=== PATIENT | male | born 1965 | race Two or more races ===

== ENCOUNTER 2018-10-02 08:23 | Inpatient (IN) | payer OTHER ==
[2018-10-02] VITALS (12 sets, daily range): BP systolic 129–190; BP diastolic 74–100
[~2018-10-02] VITALS: Ht 188 cm; Wt 99.8 kg
[~2018-10-02 08:23] MED LIST: NKM; ceFAZolin sod 2 GM in D5W 110 ML IVPB ONE
--- NOTE | 2018-10-02 09:57 | Pre-Procedure Note/Attestation ---
Pre-Procedure Note/Attestation Complete Prior to Procedure Planned Procedure: not applicable Procedure Narrative: Artificial disc replacement of cervical 56, anterior cervical discectomy and fusion of C67 Indications for Procedure Pre-Operative Diagnosis: Herniation C56,67 Attestation I attest that I discussed the nature of the procedure; its benefits; risks and complications; and alternatives (and the risks and benefits of such alternatives ), prior to the procedure, with the patient (or the patient's legal ict sales representative). I attest that, if there was a reasonable possibility of needing a blood transfusion, the patient (or the patient's legal ict sales representative) was given the [facility] standardized written summary, pursuant to the Rogelio Goehner Blood Safety Act ([place] Health and Safety Code # 1645, as amended). I attest that I re-evaluated the patient just prior to the surgery and that there has been no change in the patient's H&P, except as documented below: Tee Jones MD Oct 02, 2018 09:57
--- NOTE | 2018-10-02 09:58 | Brief Operative Note ---
Immediate Post Operative Note Operative Note Chief Complaint: neck pain and radiculopathy Pre-op Diagnosis: Herniation C56,67 Procedure: Artificial disc replacement of cervical 56, anterior cervical discectomy and fusion of C67 Post-op Diagnosis: same as pre-op Findings: consistent w/pre-op dx studies Surgeon: Karen Metal Roofer: Nely Anesthesiologist: Anesthesia: general Specimen: none Complications: none Condition: stable Fluids: IVF Estimated Blood Loss: minimal Drains: none Implant(s) used?: Yes - nuvasive interlock c sz 6, screws 3x13, synthes prodisc c sz 5 Tee Jones MD Oct 02, 2018 09:58
[2018-10-02] MEDS ORDERED: HYDROcodone/Acetamin 7.5/325 tab ORAL PRN ×3 (10:00→11:00)
[2018-10-02] MEDS ORDERED: Chloraseptic Spray 20mL Bottle ORAL PRN (10:00)
[2018-10-02] MEDS ORDERED: Metoclopramide 10mg/2ml Inj IVP PRN (10:00)
[2018-10-02] MEDS ORDERED: HYDROcodone/Acetamin 5/325 tab ORAL PRN ×2 (10:00→11:00)
[2018-10-02] MEDS ORDERED: Milk of Magnesia 30ml Ud ORAL PRN (10:00)
[2018-10-02] MEDS ORDERED: Morphine Sulfate 4mg/ml Inj (IV USE ONLY) IV PRN (10:00)
[2018-10-02] MEDS ORDERED: HYDROmorphone 1mg/ml Carpuject IVP PRN (10:00)
[2018-10-02] MEDS ORDERED: Naloxone 0.4mg/ml Inj IVP PRN (10:00)
[2018-10-02] MEDS ORDERED: Morphine Sulfate 2mg/ml Inj(IV/IM USE ONLY) IV PRN (10:00)
[2018-10-02] MEDS ORDERED: LR 1000ml 1,000 ML IVLG SCH (10:47)
--- NOTE | 2018-10-02 10:53 | Anethesia Preoperative Eval ---
Anesthesia Pre-op PMH/ROS General Date of Evaluation: Oct 02, 2018 Time of Evaluation: 13:14 Anesthesiologist: Guy ASA Score: ASA 2 Mallampati Score Class I : Soft palate, uvula, fauces, pillars visible Class II: Soft palate, uvula, fauces visible Class III: Soft palate, base of uvula visible Class IV: Only hard plate visible Mallampati Classification: Class II Surgeon: Karen Diagnosis: Neck Pain Surgical Procedure: ACDF C6-7, ADR C5-6 Anesthesia History: none Family History: no anesthesia problems Allergies: Coded Allergies: No Known Allergies (Unverified , 10/02/18) Medications: see eMAR Patient NPO?: Yes Past Medical History Cardiovascular: Reports: HTN PSxH Narrative: Appendectomy Anesthesia Pre-op Phys. Exam Physician Exam Last Vital Signs Date Time Temp Pulse Resp B/P (MAP) Pulse Ox O2 Delivery O2 Flow Rate FiO2 10/02/18 10:45 Room Air 10/02/18 10:43 97.9 79 18 143/86 (105) 97 Constitutional: NAD Neurologic: CN 2-12 intact Cardiovascular: RRR Respiratory: CTA Gastrointestinal: S/NT/ND Airway Exam Mallampati Score: Class II MO: full ROM: limited Teeth: intact Anesthesia Pre-op A/P Risk Assessment & Plan Assessment: ASA 2 Plan: GA, SED, GlideScope Go Status Change Before Surgery: No Pre-Antibiotics Dru Grams Ancef IV Given Within 1 Hr of Incision: Yes Time Given: 13:31 Isai Tovar MD Oct 02, 2018 10:52
--- NOTE | 2018-10-02 10:54 | Immediate Post-Op Evaluation ---
Immediate Post-Op Evalulation Immediate Post-Op Evalulation Procedure: ACDF C6-7, ADR C5-6 Date of Evaluation: Oct 02, 2018 Time of Evaluation: 16:15 IV Fluids: 800 LR Blood Products: 0 Estimated Blood Loss: 100 Urinary Output: 100 Blood Pressure Systolic: 190 Blood Pressure Diastolic: 95 Pulse Rate: 84 Respiratory Rate: 16 O2 Sat by Pulse Oximetry: 100 Temperature (Fahrenheit): 97.5 Pain Score (1-10): 2 Nausea: No Vomiting: No Complications 0 Patient Status: awake, reacts, patent, extubated, none Hydration Status: adequate Dru Grams Ancef IV Given Within 1 Hr of Incision: Yes Time Given: 13:31 Isai Tovar MD Oct 02, 2018 10:54
[2018-10-02] MEDS ORDERED: Labetalol 5mg/ml 20ml vial IV PRN (11:00)
[2018-10-02] MEDS ORDERED: oxyCODONE HCL/Acetaminophen 5/325mg ORAL PRN (11:00)
[2018-10-02] MEDS ORDERED: DiphenhydrAMINE 50mg/ml Inj IVP PRN (11:00)
[2018-10-02] MEDS ORDERED: Meperidine 50mg/ml Inj(FOR RIGORS ONLY) IVP PRN (11:00)
[2018-10-02] MEDS ORDERED: Acetaminophen (Non formulary) 100 ML IV ONE (11:00)
[2018-10-02] MEDS ORDERED: Atropine Sulfate 0.4mg/ml inj IVP PRN (11:00)
[2018-10-02] MEDS ORDERED: LORazepam Inj 2mg/ml 1ml IV PRN (11:00)
[2018-10-02] MEDS ORDERED: Lidocaine 1% Plain 30 ml INJ ONE (11:00)
[2018-10-02] MEDS ORDERED: Hydromorphone 0.5mg/0.5ml inj IVP PRN (11:00)
[2018-10-02] MEDS ORDERED: Midazolam 2mg/2ml Inj IVP PRN (11:00)
[2018-10-02] MEDS ORDERED: fentaNYL 100 mcg/2 mL IV PRN (11:00)
[2018-10-02] MEDS ORDERED: Ketorolac 30mg Inj IV PRN ×2 (11:00)
[2018-10-02] MEDS ORDERED: Lidocaine 1% MPF 10mg/ml 5ml ONE (11:06)
[2018-10-02] MEDS ORDERED: Sodium Chloride 10ml vial INJ ONE (11:06)
[2018-10-02] MEDS ORDERED: Ketorolac 30mg Inj ONE (11:06)
[2018-10-02] MEDS ORDERED: fentaNYL 100 mcg/2 mL IV ONE ×3 (11:07→13:00)
[2018-10-02] MEDS ORDERED: Zemuron 50mg/5ml Inj IV ONE (11:23)
[2018-10-02] MEDS ORDERED: Vancomycin 1gm vial IVPB ONE (12:29)
[2018-10-02] MEDS ORDERED: Thrombin 5000 units TOPIC ONE (12:29)
[2018-10-02] MEDS ORDERED: Gelfoam Size TOPIC ONE (12:29)
[2018-10-02] MEDS ORDERED: Bacitracin 50000 Units Vial ONE (12:29)
[2018-10-02] MEDS ORDERED: Sterile Water Irrig 1000ml IRRIG ONE ×2 (13:00)
[2018-10-02] MEDS ORDERED: Neostigmine 1mg/ml 10ml Inj ONE ×2 (13:00)
[2018-10-02] MEDS ORDERED: Dexamethasone 4mg/ml vial ONE ×2 (13:00)
[2018-10-02] MEDS ORDERED: Glycopyrrolate 0.2mg/ml 1ml Vial ONE ×2 (13:00)
[2018-10-02] MEDS ORDERED: LR 1000ml ONE ×2 (13:00)
[2018-10-02] MEDS ORDERED: Propofol 1,000mg/ 100ml btl IV ONE (13:00)
[2018-10-02] MEDS ORDERED: NS Irrig 1000ml IRRIG ONE (13:19)
--- NOTE | 2018-10-02 17:23 | Diagnostic Imaging Report ---
INDICATION: Pain, intraoperative TECHNIQUE: Intraoperative imaging Fluoroscopy time: 37.8 seconds Total dose: 0.53948 mGym2 Total number of images: 4 COMPARISON: None FINDINGS: Intraoperative images demonstrate surgical tool projected at the anterior aspect of the C6-7 disc. Subsequent images demonstrate placement of a disc prosthesis at C5-6, and anterior fusion hardware at C6-7. IMPRESSION: Intraoperative imaging, as described
--- NOTE | 2018-10-02 17:32 | General Progress Note ---
Assessment/Plan Assessment/Plan neck pain and radiculopathy Herniation C56,67 Artificial disc replacement of cervical 56, anterior cervical discectomy and fusion of C67 PLAN 1. incentive spirometry 2. SCD 3. PT evaluation and therapy 4. Hydration 5. Pain management 6. discharge once stable with outpatient follow up Subjective Allergies: Coded Allergies: No Known Allergies (Unverified , 10/02/18) Subjective asked to follow up postop Objective Last 24 Hour Vital Signs Date Time Temp Pulse Resp B/P (MAP) Pulse Ox O2 Delivery O2 Flow Rate FiO2 10/02/18 17:05 97.9 85 17 154/84 100 Nasal Cannula 3 10/02/18 16:55 81 20 162/84 100 Nasal Cannula 3 10/02/18 16:38 85 16 169/95 100 Simple Mask 6 10/02/18 16:28 180/100 10/02/18 16:28 80 14 180/100 100 Simple Mask 6 10/02/18 16:14 81 15 182/89 100 Simple Mask 6 10/02/18 16:09 80 13 182/98 100 Simple Mask 6 10/02/18 16:04 97.5 85 16 190/95 100 Simple Mask 6 10/02/18 16:04 84 16 100 10/02/18 10:45 Room Air 10/02/18 10:43 97.9 79 18 143/86 (105) 97 Height (Feet): 6 Height (Inches): 2.00 Weight (Pounds): 220 Objective WDWN NAD clear breath sounds bilaterally without rhonchi or wheeze [id number] without MRG NABS nontender no HSM no CCE nonfocal Mike Fernandez MD Oct 02, 2018 17:32
--- NOTE | 2018-10-02 18:03 | NUR ---
NURSE NOTES: Received patient from ANDREA Collado awake alert with out no distress, surgical site with Dermabond and Ice pack no bleeding neuro check stable, pt. reported discomfort with FC only and pain 5/10 at surgical site. RN assessed the FC draining well and no abnormal finding. Call light with in reach bed on low position and locked, room orientation given. overhead table and phone with in reach. patient had baclofen 5mg in the belonging bag sent to pharmacy.
[2018-10-02] MEDS: Morphine Sulfate 4mg/ml Inj (IV USE ONLY) IV PRN ×2 (18:53→23:37)
--- NOTE | 2018-10-02 19:00 | NUR ---
NURSE NOTES: FC removed as ordered patient tolerated the procedure, after FC removal patient stated he still feel the discomfort and the urge to urinate urinal given no urine yet. FC output 200ml yellow clear. reported pain 6/10 morphine 4mg given will continue to monitor.
--- NOTE | 2018-10-02 19:30 | NUR ---
NURSE NOTES: Seen pt on initial rounding. Pt AAXO3, resp even, incision anterior neck intact, uses ice pack to site and posterior neck. c/o pain, will f/u w/ pain med schedule. No distress noted, call light w/in reach.
--- NOTE | 2018-10-02 19:43 | NUR ---
HAND-OFF: Report given to ANDREA Guzman patient stable condition.
[2018-10-02] MEDS: NS w/KCl 20mEq 1,000 ML IV SCH (20:29)
[2018-10-02] MEDS: ceFAZolin sod 1 GM in D5W 55 ML IV SCH (20:32)
[2018-10-02] MEDS: Dexamethasone 4mg/ml vial IVP SCH (23:36)
[2018-10-03] VITALS: BP 144/81
--- NOTE | 2018-10-03 | Operative Note - Dictated ---
DATE OF OPERATION: 10/02/2018 SURGEON: Tee Jones MD, Orthopaedic Spine Surgeon. AUTO HAULER: FLORENCIO Wilder. PREOPERATIVE DIAGNOSES: 1. Intractable neck pain. 2. Radiculopathy. 3. Herniation, C5-C6, C6-C7. 4. Neural foraminal stenosis, C5-C6, C6-C7. 5. Stenosis. POSTOPERATIVE DIAGNOSES: 1. Intractable neck pain. 2. Radiculopathy. 3. Herniation, C5-C6, C6-C7. 4. Neural foraminal stenosis, C5-C6, C6-C7. 5. Stenosis. PROCEDURE PERFORMED: 1. Anterior cervical discectomy and artificial disc replacement of C5-C6 using a Synthes ProDisc C size 5 height. 2. Anterior cervical discectomy and fusion of C6-C7 using NuVasive Interlock C size 6 PEEK cage and three screws of length 13 mm with allograft Osteocel bone and local autograft. 3. Use of intraoperative microscope. 4. Motor-evoked potential monitoring. 5. Somatosensory-evoked potential monitoring. 6. Supervision and interpretation of fluoroscopy. COMPLICATIONS: None. ANESTHESIA: General. ESTIMATED BLOOD LOSS: Less than 100 mL. INDICATIONS FOR SURGERY: This patient is a 53-year-old male who has history of diagnoses as listed above. As of result of this, the patient sustained intractable neck pain, radiculopathy, herniation at C5-C6 and C6-C7, neural foraminal stenosis at C5-C6 and C6-C7, and stenosis. We tried a course of conservative management, but despite this course, there was still a significant component of persistent, recalcitrant neck pain and arm pain. The MRI demonstrated significant neural foraminal compromise secondary to disc herniations at C5-C6 and C6-C7. We had a long discussion with Vicken regarding the risks and benefits of surgery. Our discussion included but was not limited to nonoperative management, chiropractic management, another epidural steroid injection as well definitive management in the form of surgery. We recommended an artificial disc replacement of cervical C5-C6 and anterior cervical discectomy and fusion of C6-C7 as final definitive management. We reviewed the risks and benefits of surgery with the patient. Our discussion included a comprehensive review of the clinical issues and the nature of the clinical decision. We reviewed the alternatives, including doing nothing. The patient elected to proceed accordingly with an artificial disc replacement of C5-C6 and anterior cervical discectomy and fusion of C6-C7. We had a long discussion regarding the risks, alternatives, and benefits of surgery. Our description of the risks included a discussion in person as well as a signed consent which detailed all pertinent risks from the procedure itself. Briefly, our discussion included but was not limited to infection, bleeding, pseudarthrosis, spinal cord injury, neurovascular injury, dural tear, CSF leak, neuropathy, paralysis, permanent weakness/drop foot/drop arm, paresthesias, blindness, palsy, and weakness. The patient understood there may be a need for a revision surgery or additional procedures. Approach-related complications including dysphonia, dysphagia, blindness, permanent vocal cord and neural injury, hematoma, swallowing and breathing difficulty. Medical complications were reviewed including liver, kidney, shock, cardiopulmonary failure, anesthesia complications including , swelling, damage to the musculature, larynx/voice injury or loss, esophagus/throat, trachea, blood vessels and muscles/muscular sprain and lungs/pneumothorax during this surgical procedure; injury to deeper structures may be temporary or permanent. After this review of risks, the patient understood these and elected to proceed. A written and verbal consent was given. We discussed the pros and cons of all the alternatives. We discussed the uncertainties associated with the decision. Afterwards, I assessed the patient's understanding and explored their preferences. All questions were answered and no guarantees were given. Medical clearance was obtained prior to surgery. INTRAOPERATIVE FINDINGS: A discrete disc herniation which was found posterior to an obvious tear in the posterior longitudinal ligament at C5-C6. This was causing a considerable amount of neural foraminal stenosis with significant encroachment on the neural foramina and spinal cord which was being impinged as a result of this pressure. Upon inspection of the interspace at C6-C7, I noticed a rent in the posterior longitudinal ligament or PLL. Upon inspection of this tear once it was mobilized with Kerrison rongeurs, there was a disc fragment and herniation causing encroachment on the neural foramina and spinal cord posterior to the PLL. This was resected as well which caused some noted relief on the underlying neural elements. DESCRIPTION OF PROCEDURE: Under the benefit of general endotracheal anesthesia and with the assistance of the entire operative team, the patient was moved from the rgranton onto the operative table in the supine position. The head was secured and carefully positioned appropriately. Bilateral arms were secured with Gel Pads and foam and all bony prominences were padded. For the bilateral lower extremities, SCD and LUZ MARINA hose were placed for DVT prophylaxis. A surgical timeout was called which corroborated our planned procedure of artificial disc replacement of an artificial disc replacement of C5-C6 and anterior cervical discectomy and fusion of C6-C7. Preoperative antibiotics were administered within 30 minutes of the incision for antibiotic prophylaxis. Using lateral fluoroscopic radiography, the operative levels were delineated. Next, the wound was prepped and draped with chlorhexidine and sterile drapes. An incision was based on lateral fluoroscopy and we centered our incision at the C5-C6 and C6-C7 interspace and next using a standard Frausto-Callaway anterior-based approach, the incision was taken down through the skin and subcutaneous tissues until the vertebral bodies and their corresponding disc spaces were visualized. A needle was placed into the interspace to confirm placement of the operative interspace and we performed the remainder of procedure under microscopic visualization. Next, using bipolar and Bovie cautery to ensure meticulous hemostasis, the longus colli was mobilized bilaterally and retractors were placed deep to the longus colli bilaterally to address retraction. Next, we turned our attention to the radical anterior discectomy. This was initially performed at C5-C6 first by using a 15 blade scalpel followed by narrow pituitaries and a Microsect 5-B curette was used to denude the endplate of all cartilaginous tissue. Next using a [employer] AM8 drill bit, the vertebral endplates were denuded of all residual cartilage in a tzwm-ha-vigz and gqqyw-lc-ywmhg fashion, and ultimately the posterior uncinate joints bilaterally and posterior osteophytic lips and margins were carefully denuded until clear visualization of the posterior longitudinal ligament was possible. An endplate preparation was performed in the exact same fashion using an intervertebral senior business intelligence analyst, sequential distraction was obtained throughout the disc space. We saw a tear/rent in the PLL and this was carefully mobilized and dissected using a Microsect 1-B curette until we visualized a discrete disc herniation with compression of the spinal cord as well as neural foramina which was left-sided. This neural foraminal compression was carefully resected using a Kerrison-1 and Kerrison-2 rongeurs until complete decompression of the spinal cord was visualized and complete decompression of the neural foramina and nerve root therein as well as the axilla and lateral margin of the nerve root was visualized and subsequently completely decompressed. The family was notified at one-hour intervals throughout the procedure to provide for consistent updates. We next turned our attention towards trialing our implant within the disc space. We initially tried size 5 and this ProDisc Cervical spacer fit well in regard to depth and width. This implant was opened and prepared. Next under direct visualization, I confirmed excellent fit in respect to the anterior and posterior vertebral bodies, the uncinate joints and in regard to toggle. Once satisfied with this placement on serial AP and lateral fluoroscopy, I turned my attention towards cutting our stanford. These were cut in the bones using a reciprocating drill and afterwards all free fragments of bone were irrigated. Next, FloSeal was placed into the interspace, then removed in its entirety and the implant was inserted using fluoroscopic guidance. Next, the Synthes ProDisc C size 5 ADR was then carefully advanced and secured into the intervertebral space under direct visualization and with supervision of AP and lateral fluoroscopic views. I next turned my attention towards the radical anterior discectomy. This was then performed at C6-C7 first by using a 15 blade scalpel followed by narrow pituitaries and a Microsect 5-B curette was used to denude the endplate of all cartilaginous tissue. Next using a [employer] AM8 drill bit, the vertebral endplates were denuded of all cartilaginous tissue in a cfwo-md-ytdi and bqeji-jh-nzhjf fashion, and ultimately the posterior uncinate joints bilaterally and posterior osteophytic lips and margins were carefully denuded until wide and thorough visualization of the posterior longitudinal ligament was possible. At this level, the endplate preparation was performed in the exact same fashion using an intervertebral senior business intelligence analyst, sequential distraction was obtained throughout the disc space. We saw a tear/rent in the PLL and this was carefully mobilized and dissected using a Microsect 1-B curette until we visualized an obvious disc herniation with compression of the spinal cord as well as neural foramina which was left-sided. This neural foraminal compression was carefully resected using a Kerrison-1 and Kerrison-2 rongeurs until complete decompression of the spinal cord was visualized and complete decompression of the neural foramina and nerve root therein as well as the axilla and lateral margin of the nerve root was visualized and subsequently completely decompressed. We next turned our attention towards trialing our implant within the disc space. We initially tried size 5 and afterwards size 6 trial from the NuVasive Interlock system at each level, which appeared to be appropriate under AP and lateral fluoroscopy as well as in terms of its height, depth, width, and lack of toggle. The PEEK (polyetheretherketone) interbody cages were then both packed with allograft bone from Osteocel and local autograft bone matrix. Next, these were then carefully advanced and secured into their intervertebral spaces under direct visualization and with supervision of AP and lateral fluoroscopic views. We next turned our attention towards plating. Plating was performed at each level with the NuVasive Interlock-C plating system. A total of three screws, size 13 mm in length were inserted and confirmed under AP and lateral fluoroscopy and confirmed to be in excellent position. After a finger sweep, we confirmed removal of all sponges. The retractor was removed and we next turned our attention to meticulous hemostasis with FloSeal and bipolar cautery. After the sponge and needle count was again found to be correct with our second count, we next turned our attention to closure. The wound was again copiously irrigated with antibiotic-impregnated saline Closure consisted of 4-0 clear nylon for the platysma, and 5-0 clear nylon for the superficial skin. Final skin closure and dressings consisted of Dermabond. Prior to final closure, a final radiograph was obtained which demonstrated the hardware was intact with excellent position throughout. The patient tolerated the procedure well. The patient was carefully extubated after the conclusion of surgery. We discussed the findings of the surgery with the family upon completion of the case. At this point, the patient was transferred to the spine floor for further observation. Tee Jones M.D. DR: Amarilis JOB#: [id number] CC:
--- NOTE | 2018-10-03 01:15 | NUR ---
NURSE NOTES: Pt voided for the first time post navarro removal. Output 300 ml, no further c/o at this time. Continue to monitor voiding.
[2018-10-03] MEDS: NS w/KCl 20mEq 1,000 ML IV SCH (03:33)
[2018-10-03] MEDS: Morphine Sulfate 4mg/ml Inj (IV USE ONLY) IV PRN (03:34)
[2018-10-03 04:00] VITALS: BP 141/81
[2018-10-03] MEDS: ceFAZolin sod 1 GM in D5W 55 ML IV SCH (05:05)
[2018-10-03] MEDS: Dexamethasone 4mg/ml vial IVP SCH ×2 (05:10→12:35)
--- NOTE | 2018-10-03 07:36 | NUR ---
CASE MANAGEMENT:REVIEW 53 YR OLD MALE HERE FOR ELECTIVE SURGERY SI: NECK PAIN AND RADICULOPATHY 97.9 79 18 143/86 97% ON RA IS: TO SURGERY FOR: ARTIFICIAL DISC REPLACEMENT OF C5,6 ANTERIOR CERVICAL DISCECTOMY & FUSION C6,7 : TO MED/SURG 3 EAST POST OP *INTERQUAL CRITERIA MET 10/03/18 SI: POD #1 97.9 90 20 141/81 97% ON RA IS: IV DECADRON Q6HRS IV ANCEF Q8HRS IVF@100/HR IV MORPHINE Q4 HRS PRN : MED/SURG 3 EAST PLAN: PT EVAL AND TREAT
--- NOTE | 2018-10-03 07:43 | NUR ---
HAND-OFF: Report given to ANDREA Alejandre.
--- NOTE | 2018-10-03 07:45 | NUR ---
NURSE NOTES: Received report from Kristi MENDEZ. Patient is awake alert and oriented x4, no acute distress noted. Sitting up in bed, on 2L NC. Reporting no pain at this time. Anterior neck incision clean and dry, no signs of infection noted, wound edges well approximated. Side rails upx3, bed low and locked, call light in reach. Will continue to monitor.
[2018-10-03 08:00] VITALS: BP 135/73
--- NOTE | 2018-10-03 08:19 | General Progress Note ---
Assessment/Plan Assessment/Plan neck pain and radiculopathy Herniation C56,67 Artificial disc replacement of cervical 56, anterior cervical discectomy and fusion of C67 PLAN 1. incentive spirometry 2. SCD 3. PT evaluation and therapy 4. Hydration 5. Pain management 6. discharge per surgery Subjective Allergies: Coded Allergies: No Known Allergies (Unverified , 10/02/18) Subjective care noted postop Objective Last 24 Hour Vital Signs Date Time Temp Pulse Resp B/P (MAP) Pulse Ox O2 Delivery O2 Flow Rate FiO2 10/03/18 04:00 97.9 90 20 141/81 (101) 97 10/03/18 00:07 97.8 10/03/18 00:00 98.2 93 20 144/81 (102) 96 10/02/18 23:45 Nasal Cannula 2.0 28 10/02/18 23:45 97 Nasal Cannula 2.0 28 10/02/18 21:00 Nasal Cannula 2.0 10/02/18 20:00 97.8 91 17 150/85 (106) 95 10/02/18 18:30 97.9 80 17 129/78 (95) 95 10/02/18 18:00 97.3 94 18 134/74 (94) 96 10/02/18 17:20 97.9 10/02/18 17:10 86 13 154/79 99 Nasal Cannula 3 10/02/18 17:05 97.9 85 17 154/84 100 Nasal Cannula 3 10/02/18 16:55 81 20 162/84 100 Nasal Cannula 3 10/02/18 16:38 85 16 169/95 100 Simple Mask 6 10/02/18 16:28 180/100 10/02/18 16:28 80 14 180/100 100 Simple Mask 6 10/02/18 16:14 81 15 182/89 100 Simple Mask 6 10/02/18 16:09 80 13 182/98 100 Simple Mask 6 10/02/18 16:04 97.5 85 16 190/95 100 Simple Mask 6 10/02/18 16:04 84 16 100 10/02/18 10:45 Room Air 10/02/18 10:43 97.9 79 18 143/86 (105) 97 Intake and Output 10/02/18 10/03/18 19:00 07:00 Intake Total 1000 ml 1060 ml Output Total 325 ml 650 ml Balance 675 ml 410 ml Intake IV Total 1000 ml 1060 ml Output Urine Total 225 ml 650 ml Estimated Blood Loss 100 ml # Voids 1 Height (Feet): 6 Height (Inches): 2.00 Weight (Pounds): 220 Objective WDWN NAD clear breath sounds bilaterally without rhonchi or wheeze [id number] without MRG NABS nontender no HSM no CCE nonfocal Mike Fernandez MD Oct 03, 2018 08:19
[2018-10-03] MEDS ORDERED: Docusate 100mg cap ORAL SCH (09:00)
[2018-10-03 12:00] VITALS: BP 154/93
[2018-10-03 12:30] VITALS: BP 148/76
--- NOTE | 2018-10-03 12:30 | 48 Hour Post Anesthesia Eval ---
Post Anesthesia Evaluation Procedure: ACDF C6-7, ADR C5-6 Date of Evaluation: Oct 03, 2018 Time of Evaluation: 12:29 Blood Pressure Systolic: 148 0: 76 Pulse Rate: 68 Respiratory Rate: 20 Temperature (Fahrenheit): 97.6 O2 Sat by Pulse Oximetry: 98 Airway: patent Nausea: No Vomiting: No Pain Intensity: 3 Hydration Status: adequate Cardiopulmonary Status: stable Mental Status/LOC: patient returned to baseline Follow-up Care/Observations: n/a Post-Anesthesia Complications: none Follow-up care needed: N/A Cliff Pablo MD Oct 03, 2018 12:30
--- NOTE | 2018-10-03 13:08 | NUR ---
NURSE NOTES: Patient discharged. No acute distress on discharge. Patient given belongings and Rx from pharmacy. 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 Jones's office. Patient given discharge instructions and reports understanding of the education. IV removed intact. Patient escorted off unit to private vehicle by WEIGHT TESTER.
[2018-10-03] MEDS ORDERED: Tubing IV Secondary IV ONE (13:17)
--- NOTE | 2018-10-03 19:15 | Discharge Summary ---
DATE OF ADMISSION: 10/02/2018 DATE OF DISCHARGE: 10/03/2018 DATE OF ADMISSION: 10/02/2018 DATE OF DISCHARGE: 10/03/2018 PROCEDURE PERFORMED DURING ADMISSION: C5-C6 artificial disc replacement, C6-C7 fusion. REASON FOR ADMISSION: C5-C6, C6-C7 herniation. HOSPITAL COURSE/TREATMENT RENDERED: DISCHARGE PHYSICAL EXAM: 1. The patient was ambulating with and without the assistance of physical therapy. 2. Prior to discharge home incision was clean and dry with minimal swelling. 3. Follows commands. 4. Alert and oriented. 5. Aceves discontinued, voiding. 6. Incentive spirometer at bedside. 7. IVF hep locked. MOTOR: Demonstrates expected postoperative bulk and tone. Moves biceps, triceps, and deltoid musculature on command. Moves hip flexors, quadriceps, tibialis anterior, EHL, gastrocsoleus musculature on command as well. TREATMENT RENDERED: 1. Daily nursing care. 2. Physical Therapy. 3. Occupational Therapy. 4. Intravenous medications. 5. Oral medications. 6. Daily postoperative examinations by Spine surgery team. CONDITION OF PATIENT ON DISCHARGE: The condition on discharge is stable for discharge to home. DISCHARGE INSTRUCTIONS: Our specific instructions relating to physical activity, medications diet and follow-up care are detailed in our standard operative folder and were given to this patient prior to surgery. We will however summarize these briefly as stated below. Regarding physical activity we would like the patient to limit their flexion, extension and rotation. We also require a limitation on their bending lifting and twisting. All medication has been called in prior to surgery to their pharmacy of choice. They can resume their regular diet once tolerated. We would like them to shower and limit soaking the wound in a tub/Jacuzzi/the ocean for a period of one month or until the incision is completely healed. We will have them follow up in our office in three weeks time for their regularly scheduled appointment. They understand to call our office tomorrow to schedule the time for their three week followup appointment. The patient will notify us should they experience any increase in the severity of pain, redness/swelling/ or drainage from their incision. Tee Jones M.D. DR: PANDA JOB#: [id number] CC:
== END 2018-10-03 13:18 | disposition home or self-care (01) | DRG 473 ==
LOC: EDBD 09:49 → SDSOVERFLO 09:49 → 3E 17:41
PROC: 0RR30JZ Replacement of Cervical Vertebral Disc with Synthetic Substitute, Open Approach (ICD-10-PCS; principal; 2018-10-02 12:00)
PROC: 0RG10A0 Fusion of Cervical Vertebral Joint with Interbody Fusion Device, Anterior Approach, Anterior Column, Open Approach (ICD-10-PCS; principal; 2018-10-02 12:00)
PROC: 0RT30ZZ Resection of Cervical Vertebral Disc, Open Approach (ICD-10-PCS; principal; 2018-10-02 12:00)
PROC: 4A11X4G Monitoring of Peripheral Nervous Electrical Activity, Intraoperative, External Approach (ICD-10-PCS; principal; 2018-10-02 12:00)
DX: M50.122 Cervical disc disorder at C5-C6 level with radiculopathy (principal); M48.02 Spinal stenosis, cervical region; I10 Essential (primary) hypertension
CPT/HCPCS: 36415; 72040; 76000; 86850; 86900; 86901; 87081; 94760; J2405; J2710